=== PATIENT | male | born 1980 | race Caucasian/White ===

== ENCOUNTER 2016-08-04 16:56 | Inpatient (IN) | payer OTHER ==
[~2016-08-04] VITALS: Ht 175.3 cm; Wt 59.9 kg
[~2016-08-04 16:56] MED LIST: BLM PO; BUPROPION XL150 MG PO; CYCLOBENZAPRINE10 M1 PO; NAPROXEN500 MG PO; RISPERIDONE2 M1 PO
--- NOTE | 2016-08-04 17:05 | ED GENERAL ADULT ---
See Addendum History of Present Illness General Chief Complaint: ETOH/Drug Related Complaint Stated Complaint: BIBA FOR OD Source: patient, family, old records, EMS Exam Limitations: intoxication Vital Signs & Intake/Output Vital Signs & Intake/Output Vital Signs Date Time Temp Pulse Resp B/P Pulse O2 O2 Flow FiO2 Ox Delivery Rate 08/05 1347 97.8 103 18 144/84 96 Room Air 08/05 0926 97.1 73 18 113/57 98 08/05 0730 97.4 80 20 110/60 98 Room Air 08/05 0442 97.0 95 16 97/50 94 Room Air 08/05 0118 96.8 75 18 95/53 98 Room Air 08/05 0024 82 16 95/55 97 Room Air 08/04 2141 78 16 103/55 96 Room Air 08/04 2041 80 16 108/64 98 Room Air 08/04 1941 76 16 100/59 98 Room Air 08/04 1841 74 16 103/58 95 Room Air 08/04 1827 74 20 98/55 97 Room Air 08/04 1705 100 Room Air 08/04 1704 96.4 75 16 132/80 100 Room Air ED Intake and Output 08/05 0000 08/04 1200 Intake Total Output Total 400 Balance -400 Output, Urine 400 Patient 135 lb Weight Allergies Coded Allergies: aspirin (Severe, THROAT CLOSURE 02/07/16) latex (HIVES 08/04/16) Triage Nurses Notes Reviewed? yes HPI: Patient broke up with his girlfriend this morning and then he Stated his friend saying that he was on a current suicide. His friends got a hold of his father who went to check on him and found him unresponsive. They're approximately 35 tablets of his Xanax that are missing. EMS arrival patient was semi-responsive. On bringing him up to the ambulance he became more more responsive. Patient admits to taking the Xanax with denies any coingestions. Patient denies any homicidal ideations. This is the patient's fourth suicide attempt in his life. Denies any hallucinations. (BENITO SWEET,BE Greenberg) Reconcile Medications Alprazolam 1 MG TABLET 1 TAB PO BIDP PRN ANXIETY (Reported) Bupropion HCl (Bupropion XL) 150 MG TAB.ER.24H 1 TAB PO QAM DEPRESSION ( Reported) Risperidone 2 MG TABLET 1 TAB PO BID MENTAL HEALTH (Reported) (DESTINEY SWEET,MALKA Lanza) Past History Travel History Traveled to [place] past 21 day No Medical History Any Pertinent Medical History? 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 No (BENITO SWEET,BE Greenberg) Review of Systems Review of Systems Constitutional: Reports: no symptoms. EENTM: Reports: no symptoms. Respiratory: Reports: no symptoms. Cardiovascular: Reports: no symptoms. GI: Reports: no symptoms. Genitourinary: Reports: no symptoms. Musculoskeletal: Reports: no symptoms. Skin: Reports: no symptoms. Neurological/Psychological: Reports: see HPI, depressed. Hematologic/Endocrine: Reports: no symptoms. Immunologic/Allergic: Reports: no symptoms. All Other Systems: Reviewed and Negative (BENITO SWEET,BE Greenberg) Physical Exam Physical Exam General Appearance: well developed/nourished, alert, awake, lethargic, moderate distress Head: atraumatic, normal appearance Eyes: Bilateral: PERRL, EOMI. Ears, Nose, Throat: normal pharynx, normal ENT inspection, hearing grossly normal Neck: normal inspection, supple, full range of motion Respiratory: normal breath sounds, chest non-tender, no respiratory distress, lungs clear Cardiovascular: regular rate/rhythm, normal peripheral pulses Gastrointestinal: normal bowel sounds, soft, non-tender, no organomegaly Back: normal inspection, normal range of motion Extremities: normal inspection, normal capillary refill, normal range of motion, no edema Neurologic/Psych: no motor/sensory deficits, awake, alert, oriented x 3, normal mood/affect Skin: intact, normal color, warm/dry Lymphatic: no anterior cervical ramone Core Measures ACS in differential dx? No CVA/TIA Diagnosis: No Severe Sepsis Present: No Septic Shock Present: No (BENITO SWEET,BE Greenberg) Progress Differential Diagnoses I considered the following diagnoses in my evaluation of the patient: [Overdose, suicide attempt] Plan of Care: Orders Procedure Date/time Status Regular Diet 08/05 L Active Restraint- Behavioral (Order) 08/05 1350 Active Continuous Observation Monitor 08/05 0936 Active Continuous Observation Monitor 08/04 1703 Active URINE DRUGS OF ABUSE 08/04 170 Complete ETHANOL 08/04 170 Complete COMPREHENSIVE METABOLIC PANEL 08/04 1702 Complete CBC WITHOUT DIFFERENTIAL 08/04 1702 Complete EKG 08/04 1702 Active ED CRISIS PSYCH CONSULT 08/04 170 Active Laboratory Tests 08/04/16 1726: Urine Opiates Screen < 100.00, Methadone Screen < 40, Barbiturate Screen < 60, Ur Phencyclidine Scrn < 6.00, Amphetamines Screen 109, U Benzodiazepines Scrn > 800 H, Urine Cocaine Screen < 50, Urine Cannabis Screen 74.60 H 08/04/16 1712: Anion Gap 10, Estimated GFR > 60, BUN/Creatinine Ratio 13.8, Glucose 85, Calcium 10.0, Total Bilirubin 0.8, AST 16 L, ALT 33, Alkaline Phosphatase 57, Total Protein 7.4, Albumin 4.6, Globulin 2.8, Albumin/Globulin Ratio 1.6, CBC w Diff NO MAN DIFF REQ, RBC 4.90, MCV 90.5, MCH 29.4, RDW 13.4, MPV 8.9, Gran % 73.9, Lymphocytes % 18.8 L, Monocytes % 5.9, Eosinophils % 0.4, Basophils % 1.0, Absolute Granulocytes 7.9 H, Absolute Lymphocytes 2.0, Absolute Monocytes 0.6, Absolute Eosinophils 0, Absolute Basophils 0.1, PUBS MCHC 32.5 L, Serum Alcohol < 10.0 Initial ED EKG: NSR, no ST T wave changes Prior EKG: unchanged Hand-Off Endorsed To: MALKA FLEMING DO Endorsed Time: 190 Pending: consult (BENITO SWEET,BE Greenberg) Hand-Off Endorsed To: MALKA CABELLO MD Endorsed Time: 07 Pending: consult (AMY SWEET,VALERIE Lemons) Comments: 08/05/2016 1:44:52 PM I provided hCico an update on his emergency department course and care about 45 minutes to an hour ago. He was transferred from room 11 to room 14. I was called to see the patient moments ago as he began to escalate. Upon my arrival to the room for point locked leather restraints were being completed. The patient was yelling at the staff and becoming threatening. According to security the patient made a phone call to his barber stylist and when the phone call and did he became agitated. As he was being escorted back to his room by security, he began throwing elbows and kicking. He caused damage to one of the window shades to his room. He did not respond to verbal intervention prior to restraints. Although he is more calm at this point he is still threatening the emergency department staff with lawsuits and other litigation. He feels we are keeping him against his will but I tried to explain to him repeatedly that he is here for his own safety given the circumstances of his arrival. The patient shows poor insight into his medical condition at this time. He cannot be reasoned with currently. I have asked him if he would benefit from a sedative but he has yet to answer the question. He instead continues his threats of litigation. Security is also pointed out to me that the patient has made multiple calls to the police department, again in regards to his impression that we are keeping him here against his will. The police department has contacted the emergency department questioning why the patient keeps calling them. At this point I we'll have to restrict his phone calls as it seems to be exacerbating an already incendiary situation. (DESTINEY SWEET,MALKA Lanza) Departure Departure Disposition: STILL A PATIENT Condition: Stable Clinical Impression Primary Impression: Overdose Secondary Impressions: Suicide attempt Referrals: PATIENT HAS NO PRIMARY CARE DR (PCP/Family) Departure Forms: Customer Survey General Discharge Information (BENITO SWEET,BE Greenberg) Departure Comments 08/04/16 Patient signed out to me by Dr Gallo, he is for Crisis reevaluation in the am 08/05/16 At 12 midnight the patient was signed out to Dr. Paige. (MALKA FLEMING DO) Critical Care Note Critical Care Note Critical Care Time: non-applicable (BENITO SWEET,BE Greenberg)
--- NOTE | 2016-08-04 17:08 | NUR ---
TRELL FROM HOME S/P OVERDOSE ON XANAX. PT STATES HE ONLY TOOK PILLS, DENIES ETOH OR OTHER DRUG USE. TAKES PRESCRIBED XANAX DAILY FOR ANXIETY. EMS STATES HE HAD APPROX 25 PILLS UNACCOUNTED FOR. PER PT'S COUSIN, PT SENT TEXT TO BEST FRIEND ROSIE WHO SAID HE "WAS SAYING GOODBYE". UPON ARRIVAL PT DROWSY BUT AROUSABLE, 100% ON RA
--- NOTE | 2016-08-04 17:20 | NUR ---
PT SLEEPING. FAMILY AT BEDSIDE AND AWARE OF POC
[2016-08-04 17:27] LABS: ABSOLUTE BASOPHIL COUNT 0.1 /CUMM (0.0-0.2); ABSOLUTE EOSINOPHIL COUNT 0 /CUMM (0.0-0.7); ABSOLUTE GRANULOCYTE CT 7.9 /CUMM (1.4-6.5); ABSOLUTE MONOCYTE COUNT 0.6 /CUMM (0.10-0.60); EOSINOPHIL % 0.4 % (0-5); GRANULOCYTE % 73.9 % (42.2-75.2); HEMATOCRIT 44.3 % (42-52); MEAN CORPUSCULAR HGB 29.4 PG (27.0-31.0); MEAN CORPUSCULAR HGB CONC 32.5 G/DL (33.0-37.0); MEAN CORPUSCULAR VOLUME 90.5 FL (80.0-94.0); MEAN PLATELET VOLUME 8.9 FL (7.4-10.4); PLATELET COUNT 312 /CUMM (130-400); RBC DISTRIBUTION WIDTH 13.4 % (11.5-14.5); WHITE BLOOD CELL COUNT 10.6 /CUMM (4.8-10.8)
--- NOTE | 2016-08-04 18:27 | NUR ---
FAMILY REMAINS AT BEDSIDE, PT SLEEPING. VSS.
--- NOTE | 2016-08-04 18:30 | NUR ---
SITTER AT BEDSIDE
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
--- NOTE | 2016-08-04 20:59 | ED PSY CRISIS COLLATERAL NOTE ---
Collateral Note Collateral Note Family/Inform/Sara Contacts: Made a DCF referral anonymously and faxed over the 136 to [facility]. Spoke to Yesenia Zavaleta.
--- NOTE | 2016-08-04 21:15 | NUR ---
PT SLEEPING. SITTER AND MULTIPLE FAMILY MEMBERS AT BEDSIDE. WILL CONTINUE TO MONITOR
--- NOTE | 2016-08-04 22:11 | NUR ---
PT SLEEPING. FAMILY AND SITTER AT BEDSIDE
--- NOTE | 2016-08-05 00:45 | NUR ---
BP 95/55. PT MOVING ABOUT STRETCHER. O2 SAT 95-98% ON RA FAMILY REMAINS AT BEDSIDE
--- NOTE | 2016-08-05 04:12 | NUR ---
PATIENT CONTINUES TO SLEEP AT THIS TIME W/ REGULAR RESPIRATIONS NOTED. SITTER REMAINS W/ PATIENT.
--- NOTE | 2016-08-05 05:20 | NUR ---
PATIENT CONTINUES TO SLEEP AT THIS TIME W/ FRIEND AT BEDSIDE. SITTER REMAINS AT DOORWAY.
--- NOTE | 2016-08-05 06:37 | NUR ---
PATIENT CONTINUES TO SLEEP AT THIS TIME, REGULAR RESPIRATIONS NOTED. SITTER REMAINS W/ PATIENT AT THIS TIME.
--- NOTE | 2016-08-05 07:30 | NUR ---
SLEEPING SOUNDLY ON STRETCHER. RR WNL. NSR ON MONITOR. FAMILY AT BEDSIDE. AWARE OF CRISIS RE-EVAL THIS AM. 1:1 SITTER IN ATTENDANCE.
--- NOTE | 2016-08-05 07:49 | NUR ---
PT RESTING AT THIS TIME, FATHER AT BEDSIDE FOR SUPPORT. FRESH COFFEE GIVEN TO FATHER.
--- NOTE | 2016-08-05 09:35 | NUR ---
CRISIS ATTEMPTED TO SEE PT. PT UNABLE TO BE AWAKENED FOR INTERVIEW. VSS. FATHER REMAINS AT BEDSIDE.
--- NOTE | 2016-08-05 09:46 | NUR ---
Attempted to wake up patient, he was sleeping would not arouse at all.
--- NOTE | 2016-08-05 10:20 | NUR ---
PT AWAKE, ALERT. AMBULATED TO BATHROOM. FAMILY AT BEDSIDE. AWARE CRISIS WILL ATTEMPT TO SEE HIM AGAIN. Informed waiting has been performed.
[2016-08-05] MEDS ORDERED: ALPRAZOLAM1 M2 PO (11:20)
--- NOTE | 2016-08-05 11:41 | NUR ---
CRISIS TO BEDSIDE FOR PT EVAL.
--- NOTE | 2016-08-05 12:50 | NUR ---
PT MOVED INTO ROOM14. HOSPITAL POLICY ON ER BH UNIT PROVIDED UPON PTS REQUEST.
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
--- NOTE | 2016-08-05 13:19 | IP CRISIS DIAG ASSESS PSYCH ---
Diagnostic Assessment Basic Assessment Insurance Authorization: Insurance #1: Insurance name: MIS SCHMITT Phone number: Policy number: [id number] Group number: Authorization number: Primary Care Physician: Patient's PCP: PATIENT HAS NO PRIMARY CARE DR PCP's Phone Number: Patient's Quote: "I'm a little numb". Present Illness: Pt is 36 year old Primary Language? Angolan Allergies - Coded Allergies: aspirin (Severe, THROAT CLOSURE 02/07/16) latex (HIVES 08/04/16) Current Medications - Scheduled Medications Bupropion HCl (Bupropion XL) 150 MG TAB.ER.24H 1 TAB PO QAM DEPRESSION ( Reported) Entered as Reported by RACHAEL CHAMORRO on 10/26/142025 Risperidone 2 MG TABLET 1 TAB PO BID MENTAL HEALTH (Reported) Entered as Reported by RACHAEL CHAMORRO on 10/26/142026 Scheduled PRN Medications Alprazolam 1 MG TABLET 1 TAB PO BIDP PRN ANXIETY #60 (Reported) Entered as Reported by ALO AUGUSTIN on 08/05/16 1120 Current Mental Status SI/HI Risk Assessment - Minimum 6mo History-
--- NOTE | 2016-08-05 13:25 | NUR ---
PT FAMILY MEMBER MANNY TREVINO (COUSIN) STATED HE CAN BE REACH AT ANYTIME [phone]
--- NOTE | 2016-08-05 13:30 | NUR ---
PT REFUSED TO GO BACK TO HIS ROOM AFTER MAKING A PHONE CALL, TRIED TO ELOPE, PUNCHED SCREW EYE ASSEMBLER WHEN ONE APPROACHED. ORDER #7 CALLED. PT CONTINUED TO KICKING AND THREATENING STAFF. PT PLACED IN BEHAVIORAL 4 POINT HARD RESTRAINT PER ORDER.
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
--- NOTE | 2016-08-05 15:04 | NUR ---
FOOD TRAY ORDERED
--- NOTE | 2016-08-05 15:06 | NUR ---
PT REEVALUATED BY CRISIS AND AGREED TO COOPERATE, CALM AT THIS TIME. RESTRAINTS REMOVED. SKIN WNL. PT OFFERING NO COMPLAINTS. PT TO BE ADMITTED TO [facility].
--- NOTE | 2016-08-05 16:21 | NUR ---
PT SLEEPING IN BED, AROUSABLE TO VOISE, NO DISTRESS NOTED. SITTER AT DOORWAY. FOOD PROVIDED TO PT.
--- NOTE | 2016-08-05 17:29 | NUR ---
REPORT GIVEN TO CPS, DISTRIBUTION CALLED FOR TRANSPORT.
[2016-08-05 18:37] VITALS: BP 144/78
[2016-08-06 07:50] VITALS: BP 117/77
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
--- NOTE | 2016-08-06 11:50 | NUR ---
I met with this patient accompanied by the patient advocate. This is the second time the patient was educated about the PEC and his right to file a probable cause. The patient stated he will contact his development administrator and was given the hospital development administrator's card for any concerns. The patient was given a handout about a PEC as well. The patient's x-rays were negative.
[2016-08-06 12:14] VITALS: BP 110/64
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
--- NOTE | 2016-08-06 13:40 | SOCIAL WORKER PROG NOTE PSYCH ---
Social Work Progress Note Progress Note Pt was cooperative, reports being upset with care that he would be "prescribed a medication xanax , that would do this to his body, I almost ". Pt has a trauma history, and is in a relationship in which the girlfriend "Myla" is having relationships with other people including a heroin addict whom he caught her making out with last week. Pt is fragile and making excuses for this relationship to work out. 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
--- NOTE | 2016-08-06 14:10 | NUR ---
PT VISIBLE MOST OF THE DAY IN THE [place]. HE DID NOT COME TO PLANNING MEETING BUT WENT TO FOCUS GROUP, AND HAD ACTIVE PARTICIPATION IN IT. IN THE [place] PT HAS BEEN COMPLIANT WITH THE RULES OF THE UNIT. HE DENIES THOUGHTS OF HURTING SELF WHENM ASKED.
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
[2016-08-06 15:53] VITALS: BP 121/74
[2016-08-06 19:21] VITALS: BP 134/64
--- NOTE | 2016-08-07 05:51 | NUR ---
PT UNABLE TO SLEEP IN ROOM WITH SNORING ROOMMATE. PT AND MATTRESS WERE PLACED IN THE GROUP ROOM. PT APPEARED TO SLEEP WELL. PT WOULD LIKE TO HAVE EARLY KNOWLEDGE OF FAMILY MTG TIME SO HIS GF CAN MAKE PASTRY COOK HELPER ARRANGEMENTS.
[2016-08-07 07:41] VITALS: BP 120/69
--- NOTE | 2016-08-07 10:35 | SOCIAL WORKER TX PLAN PSYCH ---
Treatment Plan - Please Document: - Evidence that there is ongoing collaboration between - the patient and the interdisciplinary team, - including the patient's active participation and - responsibility for engaging in the treatment regimen, - and that the treatment plan is individualized and - relevant to the patient's conditions. - Treatment plan should reflect documentation indicating - that all active therapeutic efforts are included. Strengths/Capabilities: in treatment, family Patient Identified Trmt Goals: "I want to get home, I didn't need to come in" Discharge Plan: IOP Problem/Goals #1 Problem #1: suicidal ideation Goal (Short Term): Today I will attend 2 groups Today I will identify 2 stressors Today I will identify 2 positive supports Today I will work on recognizing 3 emotions I am feeling Goal (Mechanical Process Engineer): Be free of suicidal thoughts/attempts Develop 3 coping skills to deal with depression Identify 3 positive support systems to call in crisis Develop a crisis plan with 3 coles people Identify 2 positive traits per week about myself Identify 2 things I have to look forward to Identify 2 positive people in my life and 1 thing I appreciate about them Interventions: Learn ways to manage depressive symptoms accordingly and identify positive supports to manage life stressors and mood fluctuations. Modalities: Encourage groups, education on depression, provide CBT treatment, family meeting. DSM5/PS Stressors/Medical Prob Diagnosis' (DSM 5, Stressors, Medical): PTSD acute stress F43.0 Unspecfied Anxiety D/O F41.9 Current GAF: 25 Treatment Team - Responsibilities of members of the treatment team include: - Medication Management- MD or SONG AND DANCE PERFORMER - Medication Administration and Monitoring- Nurse - Group Therapy- Occupational Therapist - 1:1 Therapy,Disch Planning,family involvement-Dependency Counselor
[2016-08-07 12:06] VITALS: BP 132/68
--- NOTE | 2016-08-07 13:54 | SOCIAL WORKER PROG NOTE PSYCH ---
Social Work Progress Note Progress Note Patient had family meeting today with this conventional underwriter, Dr. Collado, and patients gerson Barrios. Patients gerson offerred little to no complaints about patient coming home today. She reported that she has been with patient for 8 years and never before has he done anything like this and she is not concerned that he will act like this again. Patient agreed to follow up with IOP at and has intake scheduled tomorrow at 9:30am. Sophie agreed that this would be good follow up for patient. Patient denied SI/HI/AH/VH at present and was able to contract for safety.
--- NOTE | 2016-08-07 14:06 | NUR ---
PT IS DISCHARGED TODAY TO [facility]. HE REPORTS AND DEMONSTRATES IMPROVEMENT IN HIS MOOD AND ABILITY TO FUNCTION. HE DENIES ANY THOUGHTS OF SUICIDE OR SELF HARM. HE IS NOT ON ANY MEDICATIONS BUT HAS AGREED TO FOLLOW UP WITH [facility]. PT IS GIVEN EDUCATION ON MANAGING DEPRESSED MOOD AND ON SUIICDE PREVENTION
--- NOTE | 2016-08-07 16:41 | DISCHARGE SUMMARY REPORT-PSYCH ---
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 Intoxication Cannabis Use Disorder R/O Bipolar Spectrum Dsrd Hospital Course Significant Lab Findings: glucose = 85; HDL = 64; WBC = 10.6, lymphs low at 18.8%; RYLEE = less than 10.0; urine for drugs of abuse--positive for benzodiazepines (greater than 800.00ng/ml ) and cannabis (74.60ng/ml); for further details of all normal range laboratory data for this admission, see the electronic medical record Course Complications: none Consultations: patient was seen for an admission medical H&P by Eli Palomo M.D., and followed medically throughout this admission by the hospitalist staff/[facility] medical attendings Allergies: Coded Allergies: aspirin (Severe, THROAT CLOSURE 02/07/16) latex (HIVES 08/04/16) Hospital Course/TX Response: (see also detailed daily Christelle, INFORMATICS CONSULTANT and SERVICE LINE LAYER progress notes in the electronic medical record) Patient soon began to behave appropriately and was willing to continue in hospital for a couple's meeting with his fikevineSophie. There did not appear to be any indication that patient needed anti-psychotic medication, and he expressed his desire to get off all benzodiazepines FRAN, expressing his belief that the possible adverse effects of Xanax had not been explained to him adequately when initially prescribed to him on an outpatient basis; he denied being aware of the possible sedative properties of this drug or that it could be addicting. We determined to monitor patient off all regular psychotropic medications and, therefore, tapered away Risperdal without any complications or adverse response. A couple's meeting was held on 08/07/2016. Throughout this meeting, patient was not the least irritable and accepting of his own role in the couple's recent difficulties. Both patient and fiancee expressed regret that they had not had any counselling together prior to admission and keen interest in such going forward, beginning with patient's attendance at the [facility]. At the time of discharge, patient was cognitively clear, coherent, rational and goal-directed, bright in affect, euthymic, showing no evidence of suicidal or homicidal ideation, plans, intent or impulses and well aware of his safety plan should he ever in future come to believe himself at risk to harm himself or others. Discharge HBIPS - Tobacco Use Treatment Offered Post DC Medications Offered: Script Given-See Med List (though he refused tob med tx) Post DC Tobacco Treatment Plan: [place] [facility] Appt Date: 08/14/16 - EtOH/Drug Use D/O Treatment Offered Post DC Medications Offered: NA-No EtOH/Drug Use D/O Post DC EtOH/SubAbuse TX Plan: NA-No EtOH/Drug Use D/O Metabolic Screening - Screen if on a Neuroleptic Medication - Metabolic screening should include: - Blood Pressure, BMI, Glucose or Hgb A1c, & a - Lipid profile from within the past 365 days. Metabolic Screening ([X]) Not Applicable, patient not on a neuroleptic. OR () Patient on a neuroleptic(s) . Enter below results for Glucose or Hemoglobin A1C, and lipid panel if obtained during the last 365 days. BMI: 19.900 Blood Pressure: 132/68 Laboratory Results (If applicable): Discharge Instructions General Discharge Information Discharge Medications: Discharge Medications (dose, route, frequency, indications): (patient was discharged on no psychotropic medications; Risperdal and benzodiazepines were tapered away) Multiple Neuroleptics: ([X]) Not Applicable OR Document below three failed attempts at monotherapy, or a plan to taper to monotherapy, or augmentation of Clozapine. () Patient's Diet: regular Patient's Activity: without restrictions DC Disposition: to home with millie Recommendations: I would recommend observing patient for a time off all regular psychotropic medications. If he does have a bipolar spectrum disorder [place] would likely be a better maintenance therapy than Risperdal or other anti-psychotics. Referred To: Patient was referred directly to the [facility] with intake scheduled for 2016 at 9:30am; he pledged to not use Marijuana during his participation in [facility] programming and to consider not restarting its use thereafter. Though patient asserted he was not going to be smoking cigarettes any longer, he was given an appointment card for the next [facility] scheduled for 2016 at 4pm, facilitated by Hortencia Morton LCSW. Copies To: STEPHAN SWEET,KATIE; MESSI KIM,ANNA JEWELL LPC,JAZZMINE
--- NOTE | 2016-08-07 16:41 | CP SOUTH PROGRESS NOTE PSYCH ---
Psych (Inpt) Progress Note Progress Note Include the following elements, when applicable: Involvement in the active treatment of the patient with behavioral observations of the patient and the patient's response to the treatment. Review of the ongoing treatment process in the context of the treatment plan. Indication of how multi-disciplinary staff members are carrying out the treatment plan. Plans for future interventions and recommendations for revision of the treatment plan. Liaison with other physicians/providers. Progress Note: PSYCHIATRIST NOTE (COUPLE'S MEETING/DISCHARGE), 08/07/2016: I discussed this patient's rapid improvement since admission, current mental status, treatment and discharge plans with staff team today in the daily morning SHA and Norma Andre LCSW, and I met in a couple's session with patient and his girlfriend (and their completely charming, happy and active baby boy). Patient was euthymic, not the least irritable and girlfriend very much wanting him back home today. They both noted the lack of any couple's counseling prior to this admission and confidence they would be able to work things out between them if given that opportunity; g/f was supportive of patient entering the behavioral health [facility] (which he will be able to so long as he pledges to no use of Marijuana while in the program) at this time. Patient's g/f (of 8 years) denied any hesitation in patient returning home today; he showed no evidence of suicidal or homicidal ideation, plans, intent or impulses and a positive commitment to work on his own problems, as well as those between them. They both expressed solid commitment to their relationship and family unit; patient spent much of the time during our meeting today playing with his obviously extremely happy young child. Patient will have intake at [facility] tomorrow, 2016 at 9:30am. He has been tapered off Risperdal and benzodiazepines, is currently euthymic and cognitively clear on no psychotropic medications but evaluation for possible medication trial(s) will continue at the [facility]. Patient may have a bipolar spectrum disorder and could possibly benefit from a future trial on [place] or other mood-stabilizing medication(s).
== END 2016-08-07 14:18 | DRG 756 ==
LOC: ERH 16:56 → CP SOUTH 08-05 15:47 → ERHI 08-05 15:47 → CP SOUTH 08-05 18:10
PROVIDERS: Emergency Medicine; ADMIT Psychiatry & Neurology Addiction Medicine
DX: F41.9 Anxiety disorder, unspecified (principal); F15.129 Other stimulant abuse with intoxication, unspecified; F12.10 Cannabis abuse, uncomplicated
CPT/HCPCS: 73030-LT; 73620-LT; 80307; 93005; 93010; G0480

== ENCOUNTER 2016-08-24 10:16 | Emergency (ER) | payer OTHER ==
[~2016-08-24] VITALS: Ht 175.3 cm; Wt 54.4 kg
[~2016-08-24 10:16] MED LIST changes: +ALPRAZOLAM1 M2 PO
[2016-08-24 10:25] VITALS: BP 133/75
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
[2016-08-24] MEDS ORDERED: PERCOCET 5-3251 EACH PO (11:27)
== END 2016-08-24 11:25 ==
LOC: ERH 10:16
DX: T22.112A Burn of first degree of left forearm, initial encounter (principal); X13.1XXA Other contact with steam and other hot vapors, initial encounter; Y92.9 Unspecified place or not applicable; Y93.9 Activity, unspecified
CPT/HCPCS: J3101